=== PATIENT | female | born 1960 | race Caucasian/White ===

== ENCOUNTER 2017-11-14 07:34 | Day surgery (SDC) | payer MEDICARE, OTHER ==
[2017-11-14] MEDS ORDERED: Glycopyrrolate 0.2 MG/ML 2 ML SDV IVPUSH ONE (08:30)
[2017-11-14] MEDS ORDERED: Dextrose 5%-Lactated Ringers 1,000 ML IV SCH (08:30)
[2017-11-14] MEDS ORDERED: Propofol 200 MG/20 ML SDV ONE (10:08)
[2017-11-14] MEDS ORDERED: fentaNYL 100 MCG/2 ML SDV ONE (10:08)
[2017-11-14] MEDS ORDERED: Midazolam 1 MG/ML 2 ML SDV ONE (10:08)
[2017-11-14] MEDS ORDERED: Iopamidol 612 MG/ML 150 ML Bottle IV PRN (12:58)
[2017-11-14] MEDS ORDERED: Sodium Chloride 0.9% 100 ML IV SCH (13:00)
--- NOTE | 2017-11-14 13:45 | CT ---
Soft Tissue Neck w Cont HISTORY: assess goiter Axial spiral enhanced CT scan of the neck was obtained along with sagittal and coronal reconstruction s. Auto dosage and iterative reconstruction techniques were employed. FINDINGS: Upper airway is widely patent. Parapharyngeal soft tissue structures appear symmetric with no mass or abnormal enhancement. There is no anterior or posterior cervical mass or adenopathy. Parotid glands and 70% with glands are symmetric with no mass or abnormal enhancement. No other neck mass is identified. Thyroid gland is enlarged, right lobe more so than the left. Multiple nodules can be seen. There is a coarse calcification lower pole right lobe. No superior mediastinal mass or adenopathy can be seen. Lung apices are clear. Emphysematous blebs are seen at the lung apices bilaterally. IMPRESSION: 1. Enlarged thyroid gland. Well-defined thyroid nodules are noted. There is calcification at the lowe r pole right lobe. Thyroid ultrasound obtained on 10/29/2017 is more sensitive for evaluating the thyr oid gland. See separate report. 2. No other neck mass or adenopathy is seen. 3. Emphysematous changes are noted at the lung apices bilaterally.
--- NOTE | 2017-11-14 13:52 | CT ---
Chest w Cont HISTORY: assess goiter Axial spiral enhanced CT scan of the chest was obtained along with coronal and MIP reconstructions. Auto dosage and iterative reconstruction techniques were employed. FINDINGS: Nodular appearing thyroid gland is noted. Right lobe is larger than the left. This was eval uated on previous thyroid ultrasound exam of 10/29/2017. See separate report. There is no mediastinal, axillary, or supraclavicular adenopathy. No substernal extension of the thyroid gland is seen. Heart size is normal. I see no signs of thoracic aortic aneurysm or dissection. Multiple small emphysematous blebs can be seen in the upper lobe of each lung. There is mild intersti tial prominence peripherally which could be interstitial fibrotic changes or early interstitial edema . No focal infiltrate or consolidation is seen. I see no pulmonary mass or nodule. There is no pleura l fluid or chest wall abnormality. Upper abdominal structures demonstrate possible fatty infiltration of the liver. Gallbladder appears to be surgically absent. Common hepatic duct appears dilated measu ring up to 19 mm in diameter. IMPRESSION: 1. Mild emphysematous changes at lung apices bilaterally. 2. Possible mild peripheral interstitial fibrotic changes versus edema. 3. Multinodular thyroid gland. See separate thyroid ultrasound report. 4. No other acute chest abnormality is identified. 5. Gallbladder is surgically absent. Common hepatic duct is dilated measuring up to 19 mm in diameter .
--- NOTE | 2017-11-26 09:56 | OR ---
DATE OF PROCEDURE: 11/14/2017 PREOPERATIVE DIAGNOSIS: Large goiter associated with cervical dysphagia. POSTOPERATIVE DIAGNOSES: 1. Cervical dysphagia with no anatomic, laryngopharyngeal, or esophageal obstruction. 2. Mild antral gastritis. OPERATIVE PROCEDURES: Esophagogastroduodenoscopy with antral biopsies for CLOtest (31074). ANESTHESIA: IV sedation. INDICATIONS FOR PROCEDURE: A 57-year-old referred for some dysphagia referable to cervical area. She was noted to have a large goiter, particularly on the right side, which may be causing some pressure symptoms. To rule out other anatomical problems in the upper GI tract, an upper endoscopy is being performed at this time. Potential risks of the procedure, including bleeding and perforation, were discussed, and the patient wishes to proceed. DETAILS OF PROCEDURE: The patient was taken to the operating room and placed in a left lateral decubitus position. IV sedation was administered, after which the upper GI endoscope was passed orally through the length of the esophagus and into the stomach with retroflexion view of the fundus, and thereafter through the pyloric channel into the proximal duodenum. Findings included normal hypopharynx, larynx, and upper esophageal sphincter. The esophageal body was likewise unremarkable. No significant hiatal hernia was present, and the stomach showed some mild antral gastritis without erosions. The visualized portions of the duodenum were unremarkable. At this point, biopsies were obtained from the antrum and sent for CLOtest for H. pylori. Minimal bleeding from the biopsy site was seen and the procedure then concluded. PLAN: To obtain a CT scan of the neck and upper chest to try to delineate to what extent this goiter may be causing some distortion of the trachea and/or esophagus. The ultrasound gives a good idea in terms of the overall size of the goiter but does not give very good information in terms of how it interacts with these surrounding structures. We will obtain a CT scan and see the patient back after that to determine additional treatment of the goiter as necessary, based on pressure symptoms. Mohsen Miramontes MD /[id number]
== END 2017-11-14 14:10 | disposition home or self-care (01) ==
LOC: JP.SDS 07:34
PROVIDERS: ATTEND Surgery
DX: K29.70 Gastritis, unspecified, without bleeding (principal); R13.19 Other dysphagia; Z88.5 Allergy status to narcotic agent; Z88.6 Allergy status to analgesic agent; Z79.82 Long term (current) use of aspirin; Z79.84 Long term (current) use of oral hypoglycemic drugs; Z79.899 Other long term (current) drug therapy
CPT/HCPCS: 43239; 70491; 71260; 87081; J2250; J2704; J3010; J7030; J7042; J3490

== ENCOUNTER 2017-11-22 08:52 | Inpatient (IN) | payer MEDICARE, OTHER ==
[~2017-11-22 08:52] MED LIST: Acetaminophen 500 MG Tab PO ONE
[2017-11-22] MEDS ORDERED: Albuterol/Ipratropium 3.0-0.5 MG/3 ML Neb Soln NEB ONE (09:45)
[2017-11-22] MEDS ORDERED: Gabapentin 300 MG Cap PO ONE (09:45)
[2017-11-22] MEDS ORDERED: Acetaminophen 500 MG Tab PO ONE (09:45)
[2017-11-22] MEDS ORDERED: ceFAZolin 2 GM in Premix Bag 1 BAG IV ONE (09:50)
[2017-11-22] MEDS ORDERED: Ketamine 500 MG/5 ML MDV IV ONE (10:15)
[2017-11-22] MEDS ORDERED: fentaNYL 250 MCG/5 ML SDV ONE ×2 (11:13→15:37)
[2017-11-22] MEDS ORDERED: Rocuronium 50 MG/5 ML Vial ONE ×2 (11:14→15:37)
[2017-11-22] MEDS ORDERED: Neostigmine Methylsulfate 1 MG/ML 5 ML Syringe ONE (11:14)
[2017-11-22] MEDS ORDERED: Glycopyrrolate 0.2 MG/ML 5 ML MDV ONE (11:14)
[2017-11-22] MEDS ORDERED: Succinylcholine 200 MG/10 ML MDV ONE (11:14)
[2017-11-22] MEDS ORDERED: Propofol 200 MG/20 ML SDV ONE (11:14)
[2017-11-22] MEDS ORDERED: Dexamethasone 4 MG/ML SDV ONE (11:14)
[2017-11-22] MEDS ORDERED: Ondansetron 4 MG/2 ML SDV ONE (11:14)
[2017-11-22] MEDS: Dextrose 5%-Lactated Ringers 1,000 ML IV SCH (13:20)
[2017-11-22] MEDS ORDERED: HYDROmorphone/Normal Saline 15 MG/30 ML PCA IV PRN (13:39)
[2017-11-22] MEDS ORDERED: Naloxone 0.4 MG/ML SDV IV PRN ×2 (13:42→18:15)
[2017-11-22] MEDS ORDERED: Lactated Ringers 1,000 ML ONE (15:57)
[2017-11-22] MEDS ORDERED: Nitroglycerin 0.4 MG Tab.SL SL PRN (17:19)
[2017-11-22] MEDS ORDERED: Glucagon,Human Recombinant 1 MG Vial IM PRN (17:37)
[2017-11-22] MEDS ORDERED: Insulin Aspart 100 Units/ML 3 ML Pen SUBCUT PRN (17:37)
[2017-11-22] MEDS ORDERED: Glucose Gel 15 GM in 37.5 GM Tube PO PRN (17:37)
[2017-11-22] MEDS ORDERED: 50% Dextrose in Water 50 ML Syringe IVPUSH PRN (17:37)
[2017-11-22] MEDS ORDERED: Albuterol/Ipratropium 3.0-0.5 MG/3 ML Neb Soln INH PRN (18:00)
[2017-11-22] MEDS ORDERED: Ondansetron 4 MG/2 ML SDV IVPUSH PRN ×2 (18:00→18:12)
[2017-11-22] MEDS ORDERED: Metoclopramide 10 MG/2 ML SDV IVPUSH PRN (18:12)
[2017-11-22] MEDS ORDERED: Labetalol 20 MG/4 ML Syringe IVPUSH PRN (18:14)
[2017-11-22] MEDS ORDERED: Meperidine PF 25 MG/ML Syringe IVPUSH ONE (18:15)
[2017-11-22] MEDS ORDERED: Atropine 0.1 MG/ML 10 ML Syringe IVPUSH PRN (18:16)
[2017-11-22] MEDS: Gabapentin 300 MG Cap PO SCH (21:41)
[2017-11-22] MEDS: Mirtazapine 15 MG Tab PO SCH (21:41)
[2017-11-22] MEDS: metFORMIN 500 MG Tab PO SCH (21:41)
[2017-11-22] MEDS: ceFAZolin 1 GM in Premix Bag 1 BAG IV SCH (21:49)
[2017-11-22] MEDS: Albuterol/Ipratropium 3.0-0.5 MG/3 ML Neb Soln INH SCH (21:51)
[2017-11-23] MEDS: Dextrose 5%-Lactated Ringers 1,000 ML IV SCH (00:03)
[2017-11-23] MEDS: ceFAZolin 1 GM in Premix Bag 1 BAG IV SCH ×2 (05:45→13:23)
[2017-11-23] MEDS: DULoxetine 30 MG Cap PO SCH (08:11)
[2017-11-23] MEDS: Gabapentin 300 MG Cap PO SCH ×3 (08:12→20:11)
[2017-11-23] MEDS: Hydrochlorothiazide 25 MG Tab PO SCH (08:12)
[2017-11-23] MEDS: Aspirin 81 MG Tab.EC PO SCH (08:12)
[2017-11-23] MEDS: Metoprolol Succinate 25 MG Tab.ER PO SCH (08:12)
[2017-11-23] MEDS: metFORMIN 500 MG Tab PO SCH ×2 (08:12→16:49)
[2017-11-23] MEDS: Pantoprazole 40 MG Tab.CR PO SCH (08:13)
[2017-11-23] MEDS: Losartan 50 MG Tab PO SCH (08:13)
[2017-11-23] MEDS ORDERED: Acetaminophen 325 MG Tab PO PRN (08:15)
[2017-11-23] MEDS: Albuterol/Ipratropium 3.0-0.5 MG/3 ML Neb Soln INH SCH ×4 (08:24→20:15)
[2017-11-23] MEDS: Levothyroxine 100 MCG Tab PO SCH ×2 (10:28→10:32)
[2017-11-23] MEDS: HYDROmorphone 2 MG Tab PO PRN ×2 (10:31→19:31)
[2017-11-23] MEDS: Mirtazapine 15 MG Tab PO SCH (20:11)
[2017-11-24] MEDS: Albuterol/Ipratropium 3.0-0.5 MG/3 ML Neb Soln INH SCH ×4 (07:47→20:20)
[2017-11-24] MEDS: Metoprolol Succinate 25 MG Tab.ER PO SCH (08:12)
[2017-11-24] MEDS: Hydrochlorothiazide 25 MG Tab PO SCH (08:13)
[2017-11-24] MEDS: Pantoprazole 40 MG Tab.CR PO SCH (08:13)
[2017-11-24] MEDS: Gabapentin 300 MG Cap PO SCH ×3 (08:13→20:16)
[2017-11-24] MEDS: metFORMIN 500 MG Tab PO SCH ×2 (08:13→16:33)
[2017-11-24] MEDS: Aspirin 81 MG Tab.EC PO SCH (08:13)
[2017-11-24] MEDS: DULoxetine 30 MG Cap PO SCH (08:13)
[2017-11-24] MEDS: Losartan 50 MG Tab PO SCH (08:14)
[2017-11-24] MEDS: Docusate Sodium 100 MG Cap PO SCH ×2 (09:30→20:16)
[2017-11-24] MEDS: Levothyroxine 100 MCG Tab PO SCH (10:13)
[2017-11-24] MEDS: HYDROmorphone 2 MG Tab PO PRN (10:16)
[2017-11-24] MEDS ORDERED: Bisacodyl 5 MG Tab PO PRN (20:00)
[2017-11-24] MEDS: Mirtazapine 15 MG Tab PO SCH (20:16)
[2017-11-25] MEDS: Albuterol/Ipratropium 3.0-0.5 MG/3 ML Neb Soln INH SCH (07:30)
[2017-11-25] MEDS: Levothyroxine 100 MCG Tab PO SCH (08:28)
[2017-11-25] MEDS: Gabapentin 300 MG Cap PO SCH (08:28)
[2017-11-25] MEDS: DULoxetine 30 MG Cap PO SCH (08:28)
[2017-11-25] MEDS: Aspirin 81 MG Tab.EC PO SCH (08:29)
[2017-11-25] MEDS: metFORMIN 500 MG Tab PO SCH (08:29)
[2017-11-25] MEDS: Docusate Sodium 100 MG Cap PO SCH (08:29)
[2017-11-25] MEDS: Metoprolol Succinate 25 MG Tab.ER PO SCH (08:29)
[2017-11-25] MEDS: Hydrochlorothiazide 25 MG Tab PO SCH (08:29)
[2017-11-25] MEDS: Pantoprazole 40 MG Tab.CR PO SCH (08:30)
[2017-11-25] MEDS: Losartan 50 MG Tab PO SCH (08:31)
--- NOTE | 2017-11-25 08:56 | PN ---
DATE OF SERVICE: 11/23/2017 SUBJECTIVE: The patient has been afebrile with stable vital signs. No major medical problems have been noted overnight. Blood sugar was running in the 170s overnight and pending this morning. The voice seems to be at baseline for her. We are still waiting on the morning labs. PLAN: To go to a regular diet today. If she eats okay, we will saline lock the IV and go over to oral pain medication, and we will start her on some Synthroid to make sure that is a medication she tolerates prior to being discharged. Mohsen Miramontes MD /[id number]
--- NOTE | 2017-11-25 10:29 | PN ---
DATE OF SERVICE: 11/24/2017 The patient has been afebrile with stable vital signs. She has not shown any clinical signs of hypocalcemia. Calcium is somewhat lower at 7.7 today, down from 8.2 yesterday. We will watch her 1 more day to make sure this is not falling down too much and if it does keep creeping down, we will add some Tums, and she may still be able to be discharged home tomorrow. We will give her some bowel stimulation today. Otherwise, maximize activity and work with pulmonary toilet. Mohsen Miramontes MD /[id number]
--- NOTE | 2017-11-26 09:58 | DISCH ---
FINAL DIAGNOSIS: Multinodular goiter causing pressure symptoms. SECONDARY DIAGNOSES: 1. Anxiety and depression. 2. Type 2 diabetes mellitus. 3. Hypercholesterolemia. 4. Obesity. 5. Degenerative joint disease. 6. Chronic obstructive pulmonary disease. 7. Hypertension. OPERATIVE PROCEDURES: Done on 11/22/2017, total thyroidectomy with left central compartment lymphadenectomy. HOSPITAL COURSE: This is a 57-year-old female presenting with increasingly symptomatic multinodular goiter. Previous fine-needle aspirations of one of the dominant nodules were negative for malignancy. Due to the increasing pressure symptoms, the patient has elected to proceed with a thyroidectomy. Total thyroidectomy was done on the date of procedure. Her voice has been good postoperatively. Calciums have come down somewhat, but appeared to be stabilizing in the mid 7s. I think, at this point, she can be sent home with some supplementary Tums. Otherwise, she will be continued with her home medications plus Dilaudid 2 to 4 mg q.6 hours p.r.n., #25; and we will empirically start her on Synthroid 100 mcg p.o. daily, with a TSH to be checked in 3 months. Follow up will be with Dr. Miramontes in [facility] on 12/04/2017, and we will obtain a BMP, mag, and phos at that appointment.
--- NOTE | 2017-12-02 11:22 | OR ---
DATE OF PROCEDURE: 11/22/2017 PREOPERATIVE DIAGNOSIS: Multinodular goiter with increasing pressure symptoms. POSTOPERATIVE DIAGNOSES: 1. Multinodular goiter with increasing blood pressure symptoms associated with substernal component on the right side. 2. Lymphadenopathy involving left central cervical lymph node basin. OPERATIVE PROCEDURES: Thyroid exploration with 1. Total thyroidectomy including substernal goiter (63827). 2. Excision of left central cervical lymph nodes ([id number]). ANESTHESIA: General. [employer]: MEDINA León. INDICATION FOR PROCEDURE: This is a 57-year-old with enlarging multinodular goiter causing significant pressure symptoms. CT scan done earlier showed displacement of the trachea in a leftward direction and insinuation of the thyroid between the trachea and esophagus in the tracheoesophageal groove. This appeared to be associated with pressure symptoms in that area. She previously had nodule that was aspirated and found to be benign on the fine- needle aspiration. After discussion, we elected to proceed with a thyroidectomy and we would be proceeding with a right total lobectomy. If that dissection is felt to be quite clean, we would likely proceed with left total lobectomy involving total thyroidectomy. However, if that dissection on the right side is difficult, we would opt then into a subtotal lobectomy on the left side. Potential risks including bleeding, infection, injury to the recurrent laryngeal nerve as well as parathyroid glands with side effects of those injuries having been reviewed with the patient. We had also gone over the possibility that malignancy might be identified with additional treatment being required, the need for lifelong thyroid replacement therapy were all reviewed with the patient and she wishes to proceed. DETAILS OF PROCEDURE: The patient was taken to the operating room after general endotracheal anesthesia was induced. She was positioned with a roll underneath her shoulders. The upper chest and neck areas were then prepped and draped. A standard collar incision was made, carried down through the skin and subcutaneous tissue and through the platysma layers. Subplatysmal flaps were then raised superiorly and inferiorly, and the midline fascia of the strap muscles divided. The strap muscles were dissected off the right thyroid lobe, which was noted to be quite enlarged. Initially, the middle thyroid veins were divided with Harmonic scalpel. This then allowed mobilization of the thyroid somewhat medially as one dissected particularly down toward the inferior aspect of the right thyroid lobe. There was a significant substernal component as this was mobilized upward. Then the inferior thyroid veins at that level were divided with Harmonic Scalpel as well. At that point, the upper lobe pole muscles were then isolated and divided with Harmonic scalpel. This allowed medial mobilization of the gland further and the branches of the inferior thyroid artery were then divided, flushed with the capsule as the parathyroid tissue was identified and reflected away along with . At that point, the isthmus was divided on the left side of the trachea and tracheal attachments of the isthmus and medial aspect of the right thyroid lobe were taken down with Harmonic Scalpel sequentially. Finally, the recurrent laryngeal nerve was identified as it passed toward the area of the ligament of Keith and attachments to that area were divided with Harmonic Scalpel as well and specimen consisting of the right thyroid lobe isthmus was delivered from the field. At this point the dissection was felt to the quite clean with easily identified recurrent laryngeal nerve that seemed to be intact. Clean dissection of parathyroid glands confirmed during the course of the dissection. Given this, we then planned to proceed with a total lobectomy on the left side and similar sequence of vascular division was then accomplished and finally the attachments of the trachea and finially ligament of Keith with identification of the recurrent laryngeal nerve as to the larynx confirmed those structures were all divided and the specimen delivered from the field. The area of dissection was inspected. No bleeding or edema was present in the tissues. Again, found to be necessary, midline strap muscles were approximated with a 3-0 Vicryl stitch, platysmal layer of 4-0 Vicryl stitch and the skin with 4-0 Vicryl subcuticular stitch. Dressing was applied. The patient was taken to the recovery room in satisfactory condition. Mohsen Miramontes MD /[id number]
== END 2017-11-25 10:30 | disposition home or self-care (01) | DRG 627 ==
LOC: JP.SDS 08:52 → JP.SDSSCHI 08:52 → EDSTATUS 10:00 → JP.2SS 16:50
PROVIDERS: ADMIT Surgery; ATTEND Surgery
PROC: 0GTK0ZZ Resection of Thyroid Gland, Open Approach (ICD-10-PCS; principal; 2017-11-22)
PROC: 07B20ZX Excision of Left Neck Lymphatic, Open Approach, Diagnostic (ICD-10-PCS; 2017-11-22)
DX: E04.2 Nontoxic multinodular goiter (principal); R59.0 Localized enlarged lymph nodes; F32.9 Major depressive disorder, single episode, unspecified; F41.9 Anxiety disorder, unspecified; E11.9 Type 2 diabetes mellitus without complications; Z79.84 Long term (current) use of oral hypoglycemic drugs; E66.9 Obesity, unspecified; M19.90 Unspecified osteoarthritis, unspecified site; J44.9 Chronic obstructive pulmonary disease, unspecified; I10 Essential (primary) hypertension; Z68.32 Body mass index [BMI] 32.0-32.9, adult; F17.210 Nicotine dependence, cigarettes, uncomplicated; Z88.5 Allergy status to narcotic agent; Z79.82 Long term (current) use of aspirin
CPT/HCPCS: 36415; 80048; 80053; 82962; 83036; 83735; 84100; 85027; 88305; 88307; 94640; 94762; A9270-GY; J0330; J0690; J1100; J1170; J2405; J2704; J2710; J3010; J7042; J7120; J7620

== ENCOUNTER 2022-12-13 15:21 | Inpatient (IN) | payer MEDICARE ==
[2022-12-13] MEDS ORDERED: HYDROmorphone 0.5 MG/0.5 ML Syringe IVPUSH ONE (16:03)
[2022-12-13] MEDS ORDERED: Ondansetron 4 MG/2 ML SDV IVPUSH ONE (16:03)
[2022-12-13 16:11] LABS: BASOPHILS ABSOLUTE AUTO 0.05 K/uL (0.00-0.10); BASOPHILS PERCENT AUTO 0.3 % (0.1-1.3); EOSINOPHILS ABSOLUTE AUTO 0.11 K/uL (0.00-0.40); EOSINOPHILS PERCENT AUTO 0.7 % (0.0-5.4); HEMATOCRIT 41.3 % (34.3-46.0); HEMOGLOBIN 13.4 g/dL (11.2-15.5); IMMATURE GRAN PERCENT AUTO 0.6 % (0.0-0.7); LYMPHOCYTES ABSOLUTE AUTO 2.08 K/uL (0.8-3.3); LYMPHOCYTES PERCENT AUTO 13.5 % (11.4-47.7); MEAN CORPUSCULAR HEMOGLOBIN 27.5 pg (31.6-35.5); MEAN CORPUSCULAR HGB CONC 32.4 g/dL (31.6-35.5); MEAN CORPUSCULAR VOLUME 84.8 fL (81.4-99.0); MONOCYTES ABSOLUTE AUTO 0.73 K/uL (0.20-0.90); MONOCYTES PERCENT AUTO 4.7 % (3.3-12.6); NEUTROPHILS ABSOLUTE AUTO 12.33 K/uL (1.0-7.6); NEUTROPHILS PERCENT AUTO 80.2 % (40.0-78.1); PLATELET COUNT,PLT 603 K/uL (130-375); RED BLOOD CELL COUNT 4.87 M/uL (3.77-5.24); WHITE BLOOD CELL COUNT,WBC 15.4 K/uL (3.2-11.0)
[2022-12-13] MEDS ORDERED: Sodium Chloride 0.9% 1,000 ML IV SCH ×2 (16:15→19:08)
[2022-12-13 16:26] LABS: A/G RATIO 0.7 (1.2-2.2); ALANINE AMINOTRANSFERASE,ALT 44 U/L (12-78); ALBUMIN 3.2 g/dL (3.4-5.0); ALKALINE PHOSPHATASE 411 U/L (46-116); ANION GAP 14.1 mmol/L (5.0-14.0); ASPARTATE AMNIOTRANSFERASE,AST 48 U/L (15-37); BILIRUBIN TOTAL 0.7 mg/dL (0.2-1.0); BLOOD UREA NITROGEN,BUN 16 mg/dL (7-18); CALCIUM 9.1 mg/dL (8.5-10.1); CARBON DIOXIDE,CO2 27 mmol/L (21-32); CHLORIDE,CL 97 mmol/L (100-108); EST CRCL DRUG DOSING (CG) 50.37 mL/min; ESTIMATED GFR 64 mL/min (>60); GLUCOSE RANDOM 182 mg/dL (74-106); LIPASE 63 U/L (73-393); POTASSIUM,K 5.1 mmol/L (3.6-5.2); PROTEIN TOTAL,TP 7.7 g/dL (6.4-8.2); SODIUM,NA 133 mmol/L (140-148)
[2022-12-13] MEDS ORDERED: Melatonin 3 MG Tab PO PRN (19:08)
[2022-12-13] MEDS ORDERED: Nicotine 21 MG/24 Hr Patch TRDERM PRN (19:08)
[2022-12-13] MEDS ORDERED: Albuterol 0.083% 2.5 MG/3 ML Neb Soln NEB PRN (19:08)
[2022-12-13] MEDS ORDERED: Acetaminophen 325 MG Tab PO PRN (19:08)
[2022-12-13] MEDS ORDERED: Ondansetron 4 MG Tab.DIS PO PRN (19:08)
[2022-12-13] MEDS: Pantoprazole 40 MG Vial IV SCH (19:51)
[2022-12-13] MEDS: Albuterol/Ipratropium 3.0-0.5 MG/3 ML Neb Soln NEB SCH (20:09)
[2022-12-13] MEDS: Gabapentin 300 MG Cap PO SCH (21:23)
[2022-12-13] MEDS: atorvaSTATin 20 MG Tab PO SCH (21:23)
[2022-12-13] MEDS: Mirtazapine 15 MG Tab PO SCH (21:23)
[2022-12-13] MEDS: Lactated Ringers 1,000 ML IV SCH (21:24)
[2022-12-13] MEDS: HYDROmorphone 0.5 MG/0.5 ML Syringe IVPUSH PRN (22:59)
[2022-12-14 04:54] LABS: HEMATOCRIT 34.2 % (34.3-46.0); HEMOGLOBIN 10.9 g/dL (11.2-15.5); MEAN CORPUSCULAR HEMOGLOBIN 27.5 pg (31.6-35.5); MEAN CORPUSCULAR HGB CONC 31.9 g/dL (31.6-35.5); MEAN CORPUSCULAR VOLUME 86.4 fL (81.4-99.0); RED BLOOD CELL COUNT 3.96 M/uL (3.77-5.24); WHITE BLOOD CELL COUNT,WBC 10.4 K/uL (3.2-11.0)
[2022-12-14 05:23] LABS: ANION GAP 10.2 mmol/L (5.0-14.0); CALCIUM 8.2 mg/dL (8.5-10.1); CREATININE 0.7 mg/dL (0.6-1.0); EST CRCL DRUG DOSING (CG) 71.96 mL/min; POTASSIUM,K 4.2 mmol/L (3.6-5.2)
[2022-12-14] MEDS: Lactated Ringers 1,000 ML IV SCH ×4 (05:40→23:54)
[2022-12-14] MEDS: Albuterol/Ipratropium 3.0-0.5 MG/3 ML Neb Soln NEB SCH ×4 (07:16→21:58)
[2022-12-14] MEDS ORDERED: Levothyroxine 25 MCG Tab PO SCH (07:30)
[2022-12-14] MEDS ORDERED: Levothyroxine 100 MCG Tab PO SCH ×2 (07:30)
[2022-12-14] MEDS: HYDROmorphone 0.5 MG/0.5 ML Syringe IVPUSH PRN ×3 (07:46→22:02)
[2022-12-14] MEDS ORDERED: metFORMIN 500 MG Tab PO SCH (08:00)
[2022-12-14] MEDS ORDERED: Non-Formulary Medication 1 Each (Insulin Detemir [Levemir Flexpen] 100 UNIT/ML Insuln.Pen) SUBCUT SCH (09:00)
[2022-12-14] MEDS: LEVOTHYROXINE 125 MCG PO SCH (09:07)
[2022-12-14] MEDS: DULoxetine 30 MG Cap PO SCH (09:08)
[2022-12-14] MEDS: Gabapentin 300 MG Cap PO SCH ×3 (09:08→21:59)
[2022-12-14] MEDS: Insulin Glargine,Human Rec. Analog 100 Units/ML 3 ML Pen SUBCUT SCH ×2 (09:11→22:00)
[2022-12-14] MEDS: Ondansetron 4 MG/2 ML SDV IV PRN ×2 (10:42→22:09)
[2022-12-14] MEDS ORDERED: Metoclopramide 10 MG/2 ML SDV IV PRN (11:44)
[2022-12-14] MEDS ORDERED: LORazepam 2 MG/ML SDV IV PRN (11:45)
[2022-12-14] MEDS: Pantoprazole 40 MG Vial IV SCH (19:59)
[2022-12-14] MEDS: atorvaSTATin 20 MG Tab PO SCH (21:59)
[2022-12-14] MEDS: Mirtazapine 15 MG Tab PO SCH (21:59)
[2022-12-15] MEDS ORDERED: 50% Dextrose in Water 50 ML Syringe IVPUSH ONE (02:41)
[2022-12-15] MEDS ORDERED: 50% Dextrose in Water 50 ML Syringe ONE (02:42)
[2022-12-15] MEDS ORDERED: Dextrose 5%-Lactated Ringers 1,000 ML IV SCH ×2 (02:45→11:30)
[2022-12-15 05:00] LABS: HEMATOCRIT 30.9 % (34.3-46.0); HEMOGLOBIN 9.7 g/dL (11.2-15.5); MEAN CORPUSCULAR HEMOGLOBIN 26.7 pg (31.6-35.5); MEAN CORPUSCULAR HGB CONC 31.4 g/dL (31.6-35.5); MEAN CORPUSCULAR VOLUME 85.1 fL (81.4-99.0); RED BLOOD CELL COUNT 3.63 M/uL (3.77-5.24); WHITE BLOOD CELL COUNT,WBC 6.1 K/uL (3.2-11.0)
[2022-12-15 05:31] LABS: A/G RATIO 0.6 (1.2-2.2); ALANINE AMINOTRANSFERASE,ALT 25 U/L (12-78); ALBUMIN 2.1 g/dL (3.4-5.0); ALKALINE PHOSPHATASE 289 U/L (46-116); ASPARTATE AMNIOTRANSFERASE,AST 31 U/L (15-37); BILIRUBIN TOTAL 0.5 mg/dL (0.2-1.0); BLOOD UREA NITROGEN,BUN 7 mg/dL (7-18); CARBON DIOXIDE,CO2 31 mmol/L (21-32); CHLORIDE,CL 101 mmol/L (100-108); CREATININE 0.6 mg/dL (0.6-1.0); EST CRCL DRUG DOSING (CG) 83.95 mL/min; ESTIMATED GFR 101 mL/min (>60); GLUCOSE RANDOM 120 mg/dL (74-106); MAGNESIUM 1.5 mg/dL (1.8-2.4); PHOSPHORUS 3.6 mg/dL (2.5-4.9); POTASSIUM,K 3.7 mmol/L (3.6-5.2); PRO B-TYPE NATRIUR PEPT,BNPPRO 148 pg/mL (5-125); PROTEIN TOTAL,TP 5.6 g/dL (6.4-8.2); SODIUM,NA 137 mmol/L (140-148)
[2022-12-15 05:33] LABS: ANION GAP 8.7 mmol/L (5.0-14.0)
[2022-12-15] MEDS ORDERED: Bupivacaine 0.5% 50 ML MDV ONE (06:10)
[2022-12-15] MEDS ORDERED: Meropenem 500 MG SDV ONE (06:11)
[2022-12-15] MEDS ORDERED: Lidocaine 1% with EPINEPHrine 1:100,000 50 ML MDV ONE (06:11)
[2022-12-15] MEDS ORDERED: fentaNYL 250 MCG/5 ML SDV ONE (07:17)
[2022-12-15] MEDS: LEVOTHYROXINE 125 MCG PO SCH (07:17)
[2022-12-15] MEDS ORDERED: Neostigmine Methylsulfate 1 MG/ML 5 ML Syringe ONE (07:18)
[2022-12-15] MEDS ORDERED: Dexamethasone 4 MG/ML SDV ONE (07:18)
[2022-12-15] MEDS ORDERED: Propofol 200 MG/20 ML SDV ONE (07:18)
[2022-12-15] MEDS ORDERED: Ondansetron 4 MG/2 ML SDV ONE (07:18)
[2022-12-15] MEDS ORDERED: Succinylcholine 200 MG/10 ML MDV ONE (07:18)
[2022-12-15] MEDS ORDERED: Glycopyrrolate 0.2 MG/ML 5 ML MDV ONE (07:18)
[2022-12-15] MEDS ORDERED: Rocuronium 50 MG/5 ML Vial ONE ×2 (07:18→09:08)
[2022-12-15] MEDS: Albuterol/Ipratropium 3.0-0.5 MG/3 ML Neb Soln NEB SCH ×4 (07:23→21:32)
[2022-12-15] MEDS ORDERED: Sodium Chloride 0.9% 10 ML ONE ×2 (07:52→08:44)
[2022-12-15] MEDS ORDERED: cefOXitin 2 GM in Sodium Chloride 0.9% 50 ML IV ONE (08:00)
[2022-12-15] MEDS ORDERED: Naloxone 0.4 MG/ML SDV IVPUSH PRN (08:30)
[2022-12-15] MEDS ORDERED: Phenylephrine 1% 10 MG/ML SDV ONE (08:44)
[2022-12-15] MEDS ORDERED: fentaNYL 100 MCG/2 ML SDV ONE (09:03)
[2022-12-15] MEDS ORDERED: Labetalol 20 MG/4 ML Syringe ONE (09:23)
[2022-12-15] MEDS ORDERED: Scopolamine 1.5 MG Transdermal Patch ONE (10:43)
[2022-12-15] MEDS ORDERED: Acetaminophen 1,000 MG in Premix Bag 1 BAG IV ONE ×2 (11:05→19:27)
[2022-12-15] MEDS ORDERED: Cyclobenzaprine 10 MG Tab PO PRN (11:26)
[2022-12-15] MEDS ORDERED: Ondansetron 4 MG/2 ML SDV IVPUSH PRN (12:00)
[2022-12-15] MEDS ORDERED: Metoclopramide 10 MG/2 ML SDV IVPUSH PRN (12:00)
[2022-12-15] MEDS ORDERED: diphenhydrAMINE 50 MG/ML SDV IVPUSH PRN (12:00)
[2022-12-15] MEDS ORDERED: Labetalol 20 MG/4 ML Syringe IVPUSH PRN (12:00)
[2022-12-15] MEDS: fentaNYL 2,500 MCG in Sodium Chloride 0.9% 200 ML EPIDUR SCH (12:37)
[2022-12-15] MEDS: Insulin Glargine,Human Rec. Analog 100 Units/ML 3 ML Pen SUBCUT SCH ×2 (12:45→21:24)
[2022-12-15] MEDS: Gabapentin 300 MG Cap PO SCH ×3 (12:50→20:53)
[2022-12-15] MEDS: DULoxetine 30 MG Cap PO SCH (12:50)
[2022-12-15] MEDS: Insulin Lispro 100 Unit/ML 3 ML KwikPen SUBCUT SCH (12:52)
[2022-12-15] MEDS: Magnesium Sulfate/Water 2 GM in Premix Bag 1 BAG IV SCH ×3 (13:06→21:39)
[2022-12-15] MEDS: cefOXitin 2 GM in Sodium Chloride 0.9% 50 ML IV SCH ×2 (15:16→21:10)
[2022-12-15] MEDS: hydrOXYzine HCl 50 MG/ML SDV IM PRN (15:30)
[2022-12-15] MEDS: MVI, Adult with Vitamin K 10 ML, Thiamine 200 MG, Zinc/Copper/Manganese/Selenium 1 ML i... IV SCH ×4 (16:46)
[2022-12-15] MEDS: Lactated Ringers 1,000 ML IV SCH (18:35)
[2022-12-15] MEDS: Pantoprazole 40 MG Vial IV SCH (20:40)
[2022-12-15] MEDS: atorvaSTATin 20 MG Tab PO SCH (20:54)
[2022-12-15] MEDS: Mirtazapine 15 MG Tab PO SCH (20:54)
[2022-12-16] MEDS: cefOXitin 2 GM in Sodium Chloride 0.9% 50 ML IV SCH ×4 (02:42→19:58)
[2022-12-16] MEDS: Lactated Ringers 1,000 ML IV SCH ×4 (03:50→21:00)
[2022-12-16] MEDS: hydrOXYzine HCl 50 MG/ML SDV IM PRN (04:15)
[2022-12-16 04:31] LABS: HEMATOCRIT 32.9 % (34.3-46.0); HEMOGLOBIN 10.6 g/dL (11.2-15.5); MEAN CORPUSCULAR HEMOGLOBIN 27.2 pg (31.6-35.5); MEAN CORPUSCULAR HGB CONC 32.2 g/dL (31.6-35.5); MEAN CORPUSCULAR VOLUME 84.4 fL (81.4-99.0); PLATELET COUNT,PLT 478 K/uL (130-375); WHITE BLOOD CELL COUNT,WBC 6.9 K/uL (3.2-11.0)
[2022-12-16 05:06] LABS: A/G RATIO 0.6 (1.2-2.2); ALANINE AMINOTRANSFERASE,ALT 48 U/L (12-78); ALKALINE PHOSPHATASE 256 U/L (46-116); ASPARTATE AMNIOTRANSFERASE,AST 59 U/L (15-37); BILIRUBIN TOTAL 0.4 mg/dL (0.2-1.0); BLOOD UREA NITROGEN,BUN 9 mg/dL (7-18); CARBON DIOXIDE,CO2 32 mmol/L (21-32); CHLORIDE,CL 101 mmol/L (100-108); CREATININE 0.8 mg/dL (0.6-1.0); EST CRCL DRUG DOSING (CG) 62.96 mL/min; ESTIMATED GFR 83 mL/min (>60); GLUCOSE RANDOM 137 mg/dL (74-106); MAGNESIUM 2.2 mg/dL (1.8-2.4); PHOSPHORUS 2.9 mg/dL (2.5-4.9); POTASSIUM,K 3.8 mmol/L (3.6-5.2); PRO B-TYPE NATRIUR PEPT,BNPPRO 189 pg/mL (5-125); PROTEIN TOTAL,TP 5.5 g/dL (6.4-8.2); SODIUM,NA 137 mmol/L (140-148); TSH ULTRASENSITIVE 1.954 uIU/mL (0.358-3.740)
[2022-12-16 05:20] LABS: ANION GAP 7.8 mmol/L (5.0-14.0)
[2022-12-16 05:35] LABS: ANISOCYTOSIS MODERATE; BAND ABSOLUTE MAN 1.66 K/uL; BAND PERCENT MAN 24 % (5-11); LYMPHOCYTES ABSOLUTE MAN 1.31 K/uL (0.8-3.3); LYMPHOCYTES PERCENT MAN 19 % (24-44); MONOCYTES ABSOLUTE MAN 0.69 K/uL (0.20-0.90); MONOCYTES PERCENT MAN 10 % (2-6); NEUTROPHILS ABSOLUTE MAN 3.24 K/uL (1.0-7.6); OVALOCYTES FEW; SEG NEUTROPHILS PERCENT MAN 47 % (36-66)
[2022-12-16] MEDS: Albuterol/Ipratropium 3.0-0.5 MG/3 ML Neb Soln NEB SCH ×4 (07:14→21:28)
[2022-12-16] MEDS ORDERED: Lactated Ringers 500 ML IV SCH ×2 (07:45→12:15)
[2022-12-16] MEDS: LEVOTHYROXINE 125 MCG PO SCH (08:20)
[2022-12-16] MEDS: DULoxetine 30 MG Cap PO SCH (08:24)
[2022-12-16] MEDS: Gabapentin 300 MG Cap PO SCH ×3 (08:27→21:02)
[2022-12-16] MEDS: Insulin Glargine,Human Rec. Analog 100 Units/ML 3 ML Pen SUBCUT SCH ×2 (08:28→21:24)
[2022-12-16] MEDS: SCOPOLAMINE PATCH CHECK TOP SCH (08:36)
[2022-12-16] MEDS: MVI, Adult with Vitamin K 10 ML, Thiamine 200 MG, Zinc/Copper/Manganese/Selenium 1 ML i... IV SCH ×4 (16:27)
[2022-12-16] MEDS: Pantoprazole 40 MG Vial IV SCH (20:00)
[2022-12-16] MEDS: atorvaSTATin 20 MG Tab PO SCH (21:02)
[2022-12-16] MEDS: Mirtazapine 15 MG Tab PO SCH (21:03)
[2022-12-16] MEDS ORDERED: Lactated Ringers 500 ML IV ONE (21:45)
[2022-12-17] MEDS: cefOXitin 2 GM in Sodium Chloride 0.9% 50 ML IV SCH ×2 (01:52→09:48)
[2022-12-17] MEDS ORDERED: 50% Dextrose in Water 50 ML Syringe ONE ×2 (03:16→09:36)
[2022-12-17] MEDS: Lactated Ringers 1,000 ML IV SCH ×4 (03:20→21:04)
[2022-12-17] MEDS ORDERED: Bupivacaine 0.5% 50 ML MDV ONE (06:38)
[2022-12-17] MEDS ORDERED: Meropenem 500 MG SDV ONE (06:38)
[2022-12-17] MEDS ORDERED: Lidocaine 1% with EPINEPHrine 1:100,000 50 ML MDV ONE (06:38)
[2022-12-17] MEDS ORDERED: Propofol 200 MG/20 ML SDV ONE (07:09)
[2022-12-17] MEDS ORDERED: fentaNYL 100 MCG/2 ML SDV ONE (07:27)
[2022-12-17] MEDS ORDERED: Ropivacaine 40 ML, dexAMETHasone 8 MG, EPINEPHrine 0.4 MG, Sodium Chloride 0.9% 37.6 ML NERVRT SCH ×4 (07:30)
[2022-12-17] MEDS: Albuterol/Ipratropium 3.0-0.5 MG/3 ML Neb Soln NEB SCH ×4 (07:49→20:55)
[2022-12-17] MEDS ORDERED: 50% Dextrose in Water 50 ML Syringe IVPUSH ONE (09:41)
[2022-12-17] MEDS: LEVOTHYROXINE 125 MCG PO SCH (09:50)
[2022-12-17] MEDS: Gabapentin 300 MG Cap PO SCH ×3 (09:54→20:55)
[2022-12-17] MEDS: DULoxetine 30 MG Cap PO SCH (09:56)
[2022-12-17] MEDS: Insulin Glargine,Human Rec. Analog 100 Units/ML 3 ML Pen SUBCUT SCH (09:58)
[2022-12-17] MEDS: SCOPOLAMINE PATCH CHECK TOP SCH (10:00)
[2022-12-17] MEDS: Metoclopramide 10 MG/2 ML SDV IVPUSH SCH ×3 (10:44→22:06)
[2022-12-17] MEDS: fentaNYL 2,500 MCG in Sodium Chloride 0.9% 200 ML EPIDUR SCH (14:40)
[2022-12-17] MEDS ORDERED: Lactated Ringers 500 ML IV SCH ×2 (15:15→20:15)
[2022-12-17] MEDS: Pantoprazole 40 MG Vial IV SCH (20:10)
[2022-12-17] MEDS: atorvaSTATin 20 MG Tab PO SCH (20:54)
[2022-12-17] MEDS: Mirtazapine 15 MG Tab PO SCH (20:55)
[2022-12-18] MEDS: Lactated Ringers 1,000 ML IV SCH (02:06)
[2022-12-18] MEDS: Metoclopramide 10 MG/2 ML SDV IVPUSH SCH ×4 (04:48→21:05)
[2022-12-18 04:54] LABS: BASOPHILS PERCENT AUTO 0.1 % (0.1-1.3); EOSINOPHILS ABSOLUTE AUTO 0.08 K/uL (0.00-0.40); EOSINOPHILS PERCENT AUTO 0.8 % (0.0-5.4); HEMATOCRIT 26.1 % (34.3-46.0); HEMOGLOBIN 8.3 g/dL (11.2-15.5); IMMATURE GRAN ABSOLUTE AUTO 0.06 K/uL (0.00-0.23); IMMATURE GRAN PERCENT AUTO 0.6 % (0.0-0.7); LYMPHOCYTES ABSOLUTE AUTO 1.37 K/uL (0.8-3.3); LYMPHOCYTES PERCENT AUTO 13.7 % (11.4-47.7); MEAN CORPUSCULAR HEMOGLOBIN 26.9 pg (31.6-35.5); MEAN CORPUSCULAR HGB CONC 31.8 g/dL (31.6-35.5); MEAN CORPUSCULAR VOLUME 84.7 fL (81.4-99.0); MONOCYTES ABSOLUTE AUTO 0.53 K/uL (0.20-0.90); MONOCYTES PERCENT AUTO 5.3 % (3.3-12.6); NEUTROPHILS ABSOLUTE AUTO 7.98 K/uL (1.0-7.6); NEUTROPHILS PERCENT AUTO 79.5 % (40.0-78.1); PLATELET COUNT,PLT 440 K/uL (130-375); RED BLOOD CELL COUNT 3.08 M/uL (3.77-5.24)
[2022-12-18 04:58] LABS: BASOPHILS ABSOLUTE AUTO 0.01 K/uL (0.00-0.10)
[2022-12-18 05:19] LABS: A/G RATIO 0.6 (1.2-2.2); ALANINE AMINOTRANSFERASE,ALT 30 U/L (12-78); ALBUMIN 1.9 g/dL (3.4-5.0); ALKALINE PHOSPHATASE 197 U/L (46-116); ANION GAP 7.4 mmol/L (5.0-14.0); ASPARTATE AMNIOTRANSFERASE,AST 43 U/L (15-37); BILIRUBIN TOTAL 0.4 mg/dL (0.2-1.0); BLOOD UREA NITROGEN,BUN 7 mg/dL (7-18); CALCIUM 7.9 mg/dL (8.5-10.1); CARBON DIOXIDE,CO2 34 mmol/L (21-32); CHLORIDE,CL 104 mmol/L (100-108); CREATININE 0.7 mg/dL (0.6-1.0); EST CRCL DRUG DOSING (CG) 71.96 mL/min; ESTIMATED GFR 98 mL/min (>60); GLUCOSE RANDOM 72 mg/dL (74-106); MAGNESIUM 1.7 mg/dL (1.8-2.4); PHOSPHORUS 4.6 mg/dL (2.5-4.9); POTASSIUM,K 3.4 mmol/L (3.6-5.2); SODIUM,NA 142 mmol/L (140-148)
[2022-12-18] MEDS ORDERED: 50% Dextrose in Water 50 ML Syringe ONE ×2 (05:55→20:57)
[2022-12-18] MEDS ORDERED: 50% Dextrose in Water 50 ML Syringe IVPUSH ONE ×2 (06:02→20:54)
[2022-12-18] MEDS: Albuterol/Ipratropium 3.0-0.5 MG/3 ML Neb Soln NEB SCH ×4 (07:07→20:18)
[2022-12-18] MEDS ORDERED: Naloxone 0.4 MG/ML SDV IVPUSH PRN (07:32)
[2022-12-18] MEDS ORDERED: diphenhydrAMINE 50 MG/ML SDV IVPUSH PRN (07:32)
[2022-12-18] MEDS ORDERED: Ondansetron 4 MG/2 ML SDV IVPUSH PRN (07:32)
[2022-12-18] MEDS ORDERED: diphenhydrAMINE 25 MG Cap PO PRN (07:32)
[2022-12-18] MEDS ORDERED: HYDROmorphone/Normal Saline 6 MG/30 ML PCA Vial IV PRN (07:32)
[2022-12-18] MEDS ORDERED: Dextrose 5%-Lactated Ringers 1,000 ML IV SCH ×3 (07:45→12:15)
[2022-12-18] MEDS ORDERED: Magnesium Sulfate/Water 2 GM/50 ML BAG IV SCH (07:45)
[2022-12-18] MEDS: Potassium Chloride 10 MEQ in Premix Bag 1 BAG IV SCH ×6 (09:15→14:36)
[2022-12-18] MEDS: Magnesium Sulfate/Water 2 GM in Premix Bag 1 BAG IV SCH ×3 (09:16→19:00)
[2022-12-18] MEDS: LEVOTHYROXINE 125 MCG PO SCH (09:30)
[2022-12-18] MEDS: DULoxetine 30 MG Cap PO SCH (09:32)
[2022-12-18] MEDS: Gabapentin 300 MG Cap PO SCH ×3 (09:33→20:04)
[2022-12-18] MEDS ORDERED: Furosemide 40 MG/4 ML VIAL IVPUSH ONE (11:00)
[2022-12-18] MEDS: Pantoprazole 40 MG Vial IV SCH (19:01)
[2022-12-18] MEDS: Mirtazapine 15 MG Tab PO SCH (20:04)
[2022-12-18] MEDS: atorvaSTATin 20 MG Tab PO SCH (20:05)
[2022-12-18] MEDS: Dextrose 5%-Lactated Ringers 1,000 ML IV SCH (23:16)
[2022-12-19] MEDS: Magnesium Sulfate/Water 2 GM in Premix Bag 1 BAG IV SCH ×2 (02:47→07:13)
[2022-12-19] MEDS: Metoclopramide 10 MG/2 ML SDV IVPUSH SCH ×4 (03:02→21:07)
[2022-12-19] MEDS: Acetaminophen 325 MG Tab PO PRN (03:09)
[2022-12-19 05:10] LABS: HEMATOCRIT 27.7 % (34.3-46.0); HEMOGLOBIN 9.1 g/dL (11.2-15.5); MEAN CORPUSCULAR HEMOGLOBIN 26.8 pg (31.6-35.5); MEAN CORPUSCULAR HGB CONC 32.9 g/dL (31.6-35.5); MEAN CORPUSCULAR VOLUME 81.5 fL (81.4-99.0); RED BLOOD CELL COUNT 3.4 M/uL (3.77-5.24); WHITE BLOOD CELL COUNT,WBC 8.5 K/uL (3.2-11.0)
[2022-12-19 05:35] LABS: A/G RATIO 0.6 (1.2-2.2); ALANINE AMINOTRANSFERASE,ALT 21 U/L (12-78); ALBUMIN 1.8 g/dL (3.4-5.0); ALKALINE PHOSPHATASE 215 U/L (46-116); ASPARTATE AMNIOTRANSFERASE,AST 35 U/L (15-37); BILIRUBIN TOTAL 0.5 mg/dL (0.2-1.0); BLOOD UREA NITROGEN,BUN 7 mg/dL (7-18); CALCIUM 7.6 mg/dL (8.5-10.1); CARBON DIOXIDE,CO2 32 mmol/L (21-32); CHLORIDE,CL 101 mmol/L (100-108); CREATININE 0.6 mg/dL (0.6-1.0); EST CRCL DRUG DOSING (CG) 84.56 mL/min; ESTIMATED GFR 101 mL/min (>60); GLUCOSE RANDOM 110 mg/dL (74-106); PHOSPHORUS 2.8 mg/dL (2.5-4.9); PRO B-TYPE NATRIUR PEPT,BNPPRO 984 pg/mL (5-125); PROTEIN TOTAL,TP 4.9 g/dL (6.4-8.2); SODIUM,NA 139 mmol/L (140-148)
[2022-12-19 05:44] LABS: ANION GAP 8.9 mmol/L (5.0-14.0); POTASSIUM,K 2.9 mmol/L (3.6-5.2)
[2022-12-19] MEDS: Potassium Phos in 0.9 % NaCl 15 MMOL in Premix Bag 1 BAG IV SCH ×8 (06:24→15:11)
[2022-12-19] MEDS: Albuterol/Ipratropium 3.0-0.5 MG/3 ML Neb Soln NEB SCH ×4 (06:59→21:07)
[2022-12-19] MEDS: LEVOTHYROXINE 125 MCG PO SCH (07:13)
[2022-12-19] MEDS: DULoxetine 30 MG Cap PO SCH (08:53)
[2022-12-19] MEDS: Gabapentin 300 MG Cap PO SCH ×3 (08:53→21:07)
[2022-12-19] MEDS: Magnesium Hydroxide 400 MG/5 ML Susp 30 ML Cup PO SCH ×2 (08:54→21:07)
[2022-12-19] MEDS: Dextrose 5%-Lactated Ringers 1,000 ML IV SCH (10:09)
[2022-12-19] MEDS ORDERED: Dextrose 5%-Lactated Ringers 1,000 ML IV SCH (11:30)
[2022-12-19] MEDS ORDERED: Furosemide 40 MG/4 ML VIAL IVPUSH ONE ×2 (12:00→18:30)
[2022-12-19] MEDS: Insulin Lispro 100 Unit/ML 3 ML KwikPen SUBCUT SCH (12:02)
[2022-12-19] MEDS: Pantoprazole 40 MG Vial IV SCH (19:00)
[2022-12-19] MEDS: atorvaSTATin 20 MG Tab PO SCH (21:08)
[2022-12-19] MEDS: Mirtazapine 15 MG Tab PO SCH (21:08)
[2022-12-20] MEDS: Metoclopramide 10 MG/2 ML SDV IVPUSH SCH ×4 (04:17→17:29)
[2022-12-20 04:39] LABS: HEMOGLOBIN 9.2 g/dL (11.2-15.5); MEAN CORPUSCULAR HEMOGLOBIN 26.9 pg (31.6-35.5); MEAN CORPUSCULAR HGB CONC 32.9 g/dL (31.6-35.5); MEAN CORPUSCULAR VOLUME 81.9 fL (81.4-99.0); RED BLOOD CELL COUNT 3.42 M/uL (3.77-5.24); WHITE BLOOD CELL COUNT,WBC 9.1 K/uL (3.2-11.0)
[2022-12-20 05:08] LABS: A/G RATIO 0.7 (1.2-2.2); ALANINE AMINOTRANSFERASE,ALT 22 U/L (12-78); ALBUMIN 2.1 g/dL (3.4-5.0); ALKALINE PHOSPHATASE 245 U/L (46-116); ASPARTATE AMNIOTRANSFERASE,AST 38 U/L (15-37); BILIRUBIN TOTAL 0.6 mg/dL (0.2-1.0); BLOOD UREA NITROGEN,BUN 7 mg/dL (7-18); CALCIUM 7.7 mg/dL (8.5-10.1); CARBON DIOXIDE,CO2 33 mmol/L (21-32); CHLORIDE,CL 102 mmol/L (100-108); CREATININE 0.7 mg/dL (0.6-1.0); EST CRCL DRUG DOSING (CG) 72.48 mL/min; ESTIMATED GFR 98 mL/min (>60); GLUCOSE RANDOM 129 mg/dL (74-106); PHOSPHORUS 4.3 mg/dL (2.5-4.9); POTASSIUM,K 3.8 mmol/L (3.6-5.2); PRO B-TYPE NATRIUR PEPT,BNPPRO 333 pg/mL (5-125); PROTEIN TOTAL,TP 5.2 g/dL (6.4-8.2); SODIUM,NA 140 mmol/L (140-148)
[2022-12-20 05:31] LABS: ANION GAP 8.8 mmol/L (5.0-14.0)
[2022-12-20] MEDS: Albuterol/Ipratropium 3.0-0.5 MG/3 ML Neb Soln NEB SCH ×4 (07:30→21:03)
[2022-12-20] MEDS: LEVOTHYROXINE 125 MCG PO SCH (08:16)
[2022-12-20] MEDS: Magnesium Hydroxide 400 MG/5 ML Susp 30 ML Cup PO SCH ×2 (08:17→21:02)
[2022-12-20] MEDS: DULoxetine 30 MG Cap PO SCH (08:17)
[2022-12-20] MEDS: Gabapentin 300 MG Cap PO SCH ×3 (08:17→21:03)
[2022-12-20] MEDS: oxyCODONE 5 MG Tab PO PRN ×3 (08:23→19:46)
[2022-12-20] MEDS: Metoprolol Succinate 25 MG Tab.ER PO SCH (08:25)
[2022-12-20] MEDS ORDERED: Potassium Chloride 20 MEQ Tab.ER PO ONE ×2 (10:00→17:00)
[2022-12-20] MEDS: Furosemide 40 MG/4 ML VIAL IVPUSH SCH ×3 (10:17→17:29)
[2022-12-20] MEDS ORDERED: Furosemide 40 MG Tab PO ONE (17:29)
[2022-12-20] MEDS: Insulin Lispro 100 Unit/ML 3 ML KwikPen SUBCUT SCH (17:52)
[2022-12-20] MEDS ORDERED: Pantoprazole 40 MG Tab.CR PO SCH (21:00)
[2022-12-20] MEDS: Mirtazapine 15 MG Tab PO SCH (21:03)
[2022-12-20] MEDS: atorvaSTATin 20 MG Tab PO SCH (21:03)
[2022-12-20] MEDS: Acetaminophen 325 MG Tab PO PRN (21:11)
[2022-12-21 05:02] LABS: CALCIUM 7.5 mg/dL (8.5-10.1); CREATININE 0.8 mg/dL (0.6-1.0); EST CRCL DRUG DOSING (CG) 63.42 mL/min; POTASSIUM,K 3.9 mmol/L (3.6-5.2)
[2022-12-21 05:14] LABS: ANION GAP 9.9 mmol/L (5.0-14.0)
[2022-12-21] MEDS: Albuterol/Ipratropium 3.0-0.5 MG/3 ML Neb Soln NEB SCH (07:09)
[2022-12-21] MEDS: oxyCODONE 5 MG Tab PO PRN (07:30)
[2022-12-21] MEDS: Acetaminophen 325 MG Tab PO PRN (07:34)
[2022-12-21] MEDS: LEVOTHYROXINE 125 MCG PO SCH (07:41)
[2022-12-21] MEDS: Magnesium Hydroxide 400 MG/5 ML Susp 30 ML Cup PO SCH (08:39)
[2022-12-21] MEDS: Gabapentin 300 MG Cap PO SCH (08:40)
[2022-12-21] MEDS: DULoxetine 30 MG Cap PO SCH (08:41)
[2022-12-21] MEDS: Metoprolol Succinate 25 MG Tab.ER PO SCH (08:41)
[2022-12-21 08:43] VITALS: BP 119/66; PULSE 105
[2022-12-21] MEDS ORDERED: Aspirin 81 MG Tab.EC PO SCH (09:00)
[2022-12-21 09:27] LABS: BASOPHILS PERCENT AUTO 0.2 % (0.1-1.3); EOSINOPHILS ABSOLUTE AUTO 0.22 K/uL (0.00-0.40); EOSINOPHILS PERCENT AUTO 2.1 % (0.0-5.4); HEMATOCRIT 25.9 % (34.3-46.0); HEMOGLOBIN 8.4 g/dL (11.2-15.5); IMMATURE GRAN ABSOLUTE AUTO 0.11 K/uL (0.00-0.23); IMMATURE GRAN PERCENT AUTO 1.1 % (0.0-0.7); LYMPHOCYTES ABSOLUTE AUTO 1.28 K/uL (0.8-3.3); LYMPHOCYTES PERCENT AUTO 12.3 % (11.4-47.7); MEAN CORPUSCULAR HEMOGLOBIN 26.8 pg (31.6-35.5); MEAN CORPUSCULAR HGB CONC 32.4 g/dL (31.6-35.5); MEAN CORPUSCULAR VOLUME 82.7 fL (81.4-99.0); MONOCYTES ABSOLUTE AUTO 0.37 K/uL (0.20-0.90); MONOCYTES PERCENT AUTO 3.6 % (3.3-12.6); NEUTROPHILS ABSOLUTE AUTO 8.39 K/uL (1.0-7.6); NEUTROPHILS PERCENT AUTO 80.7 % (40.0-78.1); PLATELET COUNT,PLT 439 K/uL (130-375); RED BLOOD CELL COUNT 3.13 M/uL (3.77-5.24); WHITE BLOOD CELL COUNT,WBC 10.4 K/uL (3.2-11.0)
[2022-12-21 09:33] LABS: BASOPHILS ABSOLUTE AUTO 0.02 K/uL (0.00-0.10)
== END 2022-12-21 10:15 | disposition home or self-care (01) | DRG 329 ==
LOC: JP.ED 15:21 → JP.MS 18:40 → JP.ICU 12-15 11:36 → JP.MS 12-18 10:24
PROVIDERS: ADMIT Internal Medicine; ATTEND Surgery
PROC: 0DTF0ZZ Resection of Right Large Intestine, Open Approach (ICD-10-PCS; principal; 2022-12-15)
PROC: 0FB20ZX Excision of Left Lobe Liver, Open Approach, Diagnostic (ICD-10-PCS; 2022-12-15)
PROC: 0DB80ZZ Excision of Small Intestine, Open Approach (ICD-10-PCS; 2022-12-15)
PROC: 0DBW0ZZ Excision of Peritoneum, Open Approach (ICD-10-PCS; 2022-12-15)
PROC: 0D9670Z Drainage of Stomach with Drainage Device, Via Natural or Artificial Opening (ICD-10-PCS; 2022-12-15)
PROC: 3E0M05Z Introduction of Adhesion Barrier into Peritoneal Cavity, Open Approach (ICD-10-PCS; 2022-12-15)
PROC: 0WQF0ZZ Repair Abdominal Wall, Open Approach (ICD-10-PCS; 2022-12-17)
DX: D49.0 Neoplasm of unspecified behavior of digestive system (principal); K55.019 Acute (reversible) ischemia of small intestine, extent unspecified; C78.7 Secondary malignant neoplasm of liver and intrahepatic bile duct; K56.609 Unspecified intestinal obstruction, unspecified as to partial versus complete obstruction; K55.1 Chronic vascular disorders of intestine; Z20.822 Contact with and (suspected) exposure to COVID-19; E11.9 Type 2 diabetes mellitus without complications; J44.9 Chronic obstructive pulmonary disease, unspecified; I10 Essential (primary) hypertension; E78.00 Pure hypercholesterolemia, unspecified; E66.9 Obesity, unspecified; K21.9 Gastro-esophageal reflux disease without esophagitis; Z90.49 Acquired absence of other specified parts of digestive tract; Z90.710 Acquired absence of both cervix and uterus; Z99.81 Dependence on supplemental oxygen; Z79.4 Long term (current) use of insulin; F17.210 Nicotine dependence, cigarettes, uncomplicated; Z79.82 Long term (current) use of aspirin; Z79.899 Other long term (current) drug therapy; Z88.5 Allergy status to narcotic agent; Z88.8 Allergy status to other drugs, medicaments and biological substances
CPT/HCPCS: 36415; 71045; 71046; 74176; 80048; 80053; 82378; 82947; 83605; 83690; 83735; 83880; 84100; 84132; 84443; 85025; 85027; 86850; 86900; 86901; 86920; 86922; 88112; 88305; 88307; 88309; 88341; 88342; 88360; 94640; 96361; 96374; 96375; 99223; 99232; 99233; 99285; 99285-25; A9270-GY; C9113; J0131; J0171; J0330; J0456; J0694; J1100; J1170; J1815; J1815-GY; J1940; J2185; J2370; J2405; J2704; J2710; J2765; J2795; J3010; J3410; J3411; J3475; J3480; J3490; J7030; J7050; J7120; J7121; J7620; P9047; U0002

== ENCOUNTER 2023-01-10 06:39 | Day surgery (SDC) | payer MEDICARE ==
[2023-01-10] MEDS ORDERED: Midazolam 1 MG/ML 2 ML SDV ONE (06:56)
[2023-01-10] MEDS ORDERED: Propofol 200 MG/20 ML SDV ONE (06:56)
[2023-01-10] MEDS ORDERED: fentaNYL 100 MCG/2 ML SDV ONE (06:56)
[2023-01-10] MEDS ORDERED: Bupivacaine 0.5% 50 ML MDV ONE (06:57)
[2023-01-10] MEDS ORDERED: Lidocaine 1% with EPINEPHrine 1:100,000 50 ML MDV ONE (06:58)
[2023-01-10] MEDS ORDERED: Dextrose 5%-Lactated Ringers 1,000 ML IV SCH (08:00)
[2023-01-10] MEDS ORDERED: ceFAZolin 2 GM in Premix Bag 1 BAG IV ONE (09:00)
== END 2023-01-10 11:55 | disposition home or self-care (01) ==
LOC: JP.SDS 06:39
PROVIDERS: ATTEND Surgery
DX: C18.9 Malignant neoplasm of colon, unspecified (principal); F41.9 Anxiety disorder, unspecified; F32.A Depression, unspecified; J44.9 Chronic obstructive pulmonary disease, unspecified; E11.9 Type 2 diabetes mellitus without complications; Z79.899 Other long term (current) drug therapy; Z88.5 Allergy status to narcotic agent; Z88.6 Allergy status to analgesic agent; Z88.8 Allergy status to other drugs, medicaments and biological substances
CPT/HCPCS: 36561; 77001; C1788; J0690; J1642; J2250; J2704; J3010; J3490; J7121

== ENCOUNTER 2024-02-25 10:20 | Emergency (ER) | payer MEDICARE, OTHER ==
[2024-02-25] MEDS: Insulin Regular, Human 100 Units/ML 3 ML Vial SUBCUT ONE ×2 (11:43→13:16)
== END 2024-02-25 15:58 | disposition home or self-care (01) ==
LOC: JP.ED 10:20
DX: E11.65 Type 2 diabetes mellitus with hyperglycemia (principal); E11.40 Type 2 diabetes mellitus with diabetic neuropathy, unspecified; I10 Essential (primary) hypertension; E78.00 Pure hypercholesterolemia, unspecified; J44.9 Chronic obstructive pulmonary disease, unspecified; E66.9 Obesity, unspecified; Z90.49 Acquired absence of other specified parts of digestive tract; Z90.710 Acquired absence of both cervix and uterus; Z79.82 Long term (current) use of aspirin; Z79.84 Long term (current) use of oral hypoglycemic drugs; Z88.8 Allergy status to other drugs, medicaments and biological substances; Z88.5 Allergy status to narcotic agent; Z88.6 Allergy status to analgesic agent
CPT/HCPCS: 82947; 99284; J1815

== ENCOUNTER 2024-11-10 14:07 | Emergency (ER) | payer MEDICARE ==
[2024-11-10] MEDS: Sodium Chloride 0.9% 1,000 ML IV ONE (16:05)
[2024-11-10] MEDS: Iopamidol 755 Mg/ML 100 ML Bottle IV SCH (16:46)
[2024-11-10] MEDS: Sodium Chloride 0.9% 80 ML IV SCH (16:46)
[2024-11-10] MEDS: Sodium Chloride 0.9% 10 ML Syringe FLUSH ONE (16:46)
== END 2024-11-10 17:47 | disposition home or self-care (01) ==
LOC: JP.ED 14:07
DX: C78.7 Secondary malignant neoplasm of liver and intrahepatic bile duct (principal); C78.5 Secondary malignant neoplasm of large intestine and rectum; R10.84 Generalized abdominal pain; Z79.82 Long term (current) use of aspirin; Z88.8 Allergy status to other drugs, medicaments and biological substances; Z88.5 Allergy status to narcotic agent; Z88.1 Allergy status to other antibiotic agents
CPT/HCPCS: 74177; 96360; 96361; 99284; J7030; Q9967